=== PATIENT | female | born 1990 | race Hispanic/Latino ===

== ENCOUNTER 2016-12-31 17:15 | Observation (INO) | payer OTHER ==
--- NOTE | 2016-12-31 18:13 | ED PDOC ---
HPI: Chest Pain Time Seen by Provider: 12/31/16 17:40 Chief Complaint (Nursing): Chest Pain Chief Complaint (Provider): Right Sided Chest Pain/Right Arm Pain History Per: Patient History/Exam Limitations: no limitations Onset/Duration Of Symptoms: Hrs (since this morning) Current Symptoms Are (Timing): Still Present Additional Complaint(s): 17:240 Carolyn Braden is a 26 year old female with a history of ADHD and a surgical history of tonsillectomy that presents to the ED with a chief complaint of right sided chest pain described as "pressure" and associated right arm pain that she began experiencing this morning. Patient reports associated numbness and tingling on the radial aspect of her right arm, as well as a radiation of her pain to her neck and occipital skull. She denies any difficultly breathing, syncope, headache, dizziness, or weakness in her arms or legs. Patient states that she has never experienced this type of pain in the past, not has she ever experienced any numbness or tingling in her arm before. She reports that she "did a lot of cocaine over the weekend," as well as consumed large amounts of alcohol. PMD: No Provider Past Medical History Reviewed: Historical Data, Nursing Documentation, Vital Signs Vital Signs: Last Vital Signs Temp 97.9 F 12/31/16 22:30 Pulse 81 12/31/16 22:30 Resp 16 12/31/16 22:30 BP 125/80 12/31/16 22:30 Pulse Ox 99 01/01/17 06:48 - Medical History Other PMH: ADHD - Surgical History Surgical History: Tonsillectomy - Family History Family History: States: Unknown Family Hx - Social History Alcohol: Other (consumed alcohol over the weekend) Drugs: Cocaine - Home Medications Home Medications: Ambulatory Orders Medication Instructions Recorded Amphetamine Salt Combination 30 mg PO BID 12/31/16 [Adderall] - Allergies Allergies/Adverse Reactions: Allergies Allergy/AdvReac Type Severity Reaction Status Date / Time Penicillins Allergy RASH Verified 12/31/16 17:29 ELVIRA Risk Score for UA/NSTEMI - ELVIRA Risk Score Age > 64: NO 3 or more CAD Risk Factors: NO Known CAD (Stenosis greater than 50%): NO Aspirin use in past 7 days: NO Severe Angina: NO EKG ST changes greater than 0.5mm: NO Positive Cardiac Marker: NO ELVIRA Score: 0 Risk %: 5% Review of Systems Cardiovascular: Positive for: Chest Pain (right sided ) Respiratory: Negative for: Other (no difficulty breathing) Musculoskeletal: Positive for: Neck Pain (radiation of chest pain), Arm Pain ( right arm pain), Other (radition of pain to occipital skull) Neurological: Positive for: Numbness (both numbness and tingling on the radial aspect of the right arm). Negative for: Weakness (no weakness in arms or legs) , Headache, Dizziness Physical Exam - Reviewed Nursing Documentation Reviewed: Yes Vital Signs Reviewed: Yes - Physical Exam Appears: Positive for: Non-toxic, No Acute Distress (appears comfortable) Head Exam: Positive for: ATRAUMATIC, NORMOCEPHALIC Skin: Positive for: Normal Color, Warm, Dry Eye Exam: Positive for: Normal appearance, EOMI, PERRL Neck: Positive for: Normal Cardiovascular/Chest: Positive for: Regular Rate, Rhythm. Negative for: Murmur Respiratory: Positive for: Normal Breath Sounds. Negative for: Respiratory Distress Gastrointestinal/Abdominal: Positive for: Soft. Negative for: Tenderness Neurologic/Psych: Positive for: Alert, Oriented - Laboratory Results Result Diagrams: 12/31/16 18:18 12/31/16 18:18 - ECG ECG: Positive for: Interpreted By Me, Viewed By Me ECG Rhythm: Positive for: Normal QRS, Normal ST Segment, Sinus Rhythm. Negative for: ST/T Changes Rate: 86 O2 Sat by Pulse Oximetry: 99 (RA) Pulse Ox Interpretation: Normal - Radiology X-Ray: Interpreted by Me, Viewed By Me X-Ray Interpretation: No Acute Disease Medical Decision Making Medical Decision Makin:55 Initial Impression: Cocaine Induced Chest Pain vs. Neuropathy vs. Coronary Syndrome (least likely) vs. Cervical Radiculopathy (most likely) Initial Plan: * CBC * BMP * Troponin * Chest X-Ray * Flexeril 10 mg PO * Toradol 30 mg IM * Reevaluation Scribe Attestation: Documented by Osiris Claire, acting as a scribe for Mariann Bustamante MD. Provider Scribe Attestation: All medical record entries made by the Scribe were at my direction and personally dictated by me. I have reviewed the chart and agree that the record accurately reflects my personal performance of the history, physical exam, medical decision making, and the department course for this patient. I have also personally directed, reviewed, and agree with the discharge instructions and disposition. Disposition - Clinical Impression Clinical Impression: Chest pain on exertion, Left against medical advice - Patient ED Disposition Is Patient to be Admitted: Transfer of Care Counseled Patient/Family Regarding: Studies Performed - Disposition Disposition: Transfer of Care Disposition Time: 19:00 Condition: FAIR Patient Signed Over To: Henry Napier Handoff Comments: pending CT chest
[2016-12-31 18:35] LABS: BASO # 0.1 K/uL (0.0-0.2); BASO % 1.2 % (0.0-2.0); EOS # 0.1 K/uL (0.0-0.7); EOS % 1.6 % (0.0-4.0); HEMATOCRIT 49.1 % (34.0-47.0); LYMPH % 25.2 % (20.0-40.0); MEAN CELL VOLUME 100.1 fl (81.0-99.0); MEAN PLATELET VOLUME 8.4 fl (7.2-11.7); MONO # 0.8 K/uL (0.0-0.8); MONO % 9.5 % (0.0-10.0); NEUT % 62.5 % (50.0-75.0); NRBC % 0.1 % (0.0-0.0)
[2016-12-31 19:00] LABS: BLOOD UREA NITROGEN 12 mg/dl (7-17); CALCIUM 9.6 mg/dL (8.4-10.2); CARBON DIOXIDE 25 mmol/L (22-30); CHLORIDE 100 mmol/L (98-107); GFR AFRICAN-AMERICAN > 60; GLUCOSE,RANDOM 91 mg/dL (65-105); POTASSIUM 3.9 MMOL/L (3.6-5.0); SODIUM 136 mmol/l (132-148)
[2016-12-31] MEDS ORDERED: Iodixanol 320 MG/ML 100 ML BOTTLE IV ONE (19:18)
[2016-12-31] MEDS ORDERED: Sodium Chloride 0.9% 50 ML IV ONE (19:18)
[2016-12-31 19:27] VITALS: RESP 16
--- NOTE | 2016-12-31 20:08 | ED PDOC ---
- Laboratory Results Result Diagrams: 12/31/16 18:18 12/31/16 18:18 - ECG O2 Sat by Pulse Oximetry: 99 Medical Decision Making Medical Decision Makin:00 Patient signed over to me by Dr. Mariann Bustamante MD pending ED workup. 20:45 Patient reporting a significant amount of pain, will be given [address] Chest FINDINGS: Pulmonary arteries: Unremarkable. No pulmonary embolism. Aorta: No acute findings. No thoracic aortic aneurysm. Lungs: Tiny calcified granulomas No mass. No consolidation. Pleural space: Unremarkable. No significant effusion. No pneumothorax. Heart: Unremarkable. No cardiomegaly. No significant pericardial effusion. No evidence of RV dysfunction. Bones/joints: No acute fracture. No dislocation. Soft tissues: Left thyroid hypodense lesion measuring 13-14 mm Lymph nodes: Unremarkable. No enlarged lymph nodes. IMPRESSION: No aortic dissection or pulmonary embolism. Incidental left thyroid lesion which may be further characterized with non- urgent sonography CT Abdomen FINDINGS: Lower thorax: No acute findings. Aorta: No acute findings. No abdominal aortic aneurysm. No dissection. Celiac trunk and mesenteric arteries: No acute findings. No occlusion or significant stenosis. Renal arteries: No acute findings. No occlusion or significant stenosis. Liver: Hepatomegaly and diffuse fatty infiltration No mass. Gallbladder and bile ducts: Unremarkable. No calcified stones. No ductal dilation. Pancreas: Unremarkable. No ductal dilation. No mass. Spleen: Unremarkable. No splenomegaly. Adrenals: Unremarkable. No mass. Kidneys and ureters: Unremarkable. No hydronephrosis. No solid mass. Stomach and bowel: Unremarkable. No obstruction. No mucosal thickening. Intraperitoneal space: Unremarkable. No significant fluid collection. No free air. Bones/joints: No acute fracture. No dislocation. Soft tissues: Unremarkable. No mass. Lymph nodes: Unremarkable. No enlarged lymph nodes. IMPRESSION: No acute findings in the arteries of the abdomen 21:[address] scan reading, including thyroid lesion. Patient continues to experience pain, discussed with Dr. Manuel, patient will be admitted secondary to pain. Disposition Counseled Patient/Family Regarding: Studies Performed, Diagnosis, Need For Followup - Clinical Impression Clinical Impression: Chest pain on exertion, Left against medical advice - POA Present On Arrival: None - Disposition Disposition: AGAINST MEDICAL ADVICE Condition: FAIR ED OBSERVATION Date of observation admission: 12/31/16 Time of observation admission: 21:47 - Progress Note Progress Note: 21:[address] Manuel, patient admitted secondary to unrelenting pain. 22:32 The patient is choosing to leave against medical advice. I have personally explained to the patient that choosing to do so may result in permanent bodily harm or . I have discussed at great length that without further evaluation and monitoring there may be unforeseen circumstances and/or deterioration causing permanent bodily harm or as a result of their choice. The patient is alert, oriented, and shows the mental capacity to make clear decisions regarding the patients health care at this time. The patient continues to wish to leave against medical advice. In light of the patients decision to leave against medical advice, follow-up has been arranged and the patient is aware of the importance to following up as instructed. The patient has been advised that they should return to the emergency room immediately if they change their mind at any time, or if their condition begins to change or worsen in any way.
[2016-12-31 22:31] VITALS: BP 125/80; TEMP 97.9
[2017-01-01 06:48] VITALS: O2SAT 99
--- NOTE | 2017-01-01 07:13 | CARD ---
APPROVED REPORT EKG Measurement Heart [id number] <Conclusion> Normal sinus rhythm Normal ECG
--- NOTE | 2017-01-01 10:48 | RAD ---
HISTORY: chest pain COMPARISON: None available TECHNIQUE: Chest PA and lateral FINDINGS: Tubing is noted on lateral view which appears external to the patient. LUNGS: No focal consolidation. Mild scattered probable calcified granulomas. Please note that chest x-ray has limited sensitivity for the detection of pulmonary masses. PLEURA: No significant pleural effusion identified. No definite pneumothorax . CARDIOVASCULAR: The cardiomediastinal silhouette appears within normal limits of size. OSSEOUS STRUCTURES: Mild degenerative changes of the spine. VISUALIZED UPPER ABDOMEN: Unremarkable. OTHER FINDINGS: None. IMPRESSION: No focal consolidation, significant pleural effusion, or definite pneumothorax identified.
[2017-01-01 10:51] VITALS: PULSE 86
--- NOTE | 2017-01-01 11:22 | CT ---
CT: Dissection study Indication: Chest pain and arm pain Comparison: Chest x-ray performed 12/31/16 Technique: Contrast dose: 99 mL Visipaque [id number] Total exam DLP: 1517.80 Axial computed tomographic images utilizing dissection protocol without and with IV contrast. Sagittal and coronal reformatted images were generated and reviewed. Findings: Visualized portions of the inferior thyroid gland appear heterogeneous. Hypodense left lower pole hypodense nodule measuring approximately 14 mm. The mediastinal and hilar vascular structures appear within normal limits. The heart appears within normal limits of size. No large central or segmental pulmonary embolus evident. No focal consolidation. No pleural effusion. No pneumothorax. Scattered bilateral calcified granulomas. No suspicious pulmonary nodules measuring greater than 5 mm. There is normal course and contour of the abdominal aorta and common iliac arteries. The celiac artery origin is widely patent. The superior mesenteric artery origin is widely patent. The inferior mesenteric artery origin is patent. Bilateral renal arteries appear widely patent. Hepatomegaly. Diffuse hypoattenuation of the liver compatible with hepatic steatosis. Suspected region of focal fatty sparing adjacent to the gallbladder fossa. The pancreas, spleen, adrenal glands, and gallbladder appear unremarkable. The kidneys enhance symmetrically without evidence of hydronephrosis or obstructing renal calculi. No enlarged bulky lymphadenopathy is identified. Visualized bowel loops appear within normal limits of caliber without evidence of obstruction. The appendix appears normal. No inflammatory changes are seen in the right lower quadrant to suggest acute appendicitis. No definite free air. No acute osseous abnormality is identified. Impression: Incidental left lower pole thyroid hypodense lesion. Recommend further evaluation with outpatient ultrasound. No aortic dissection or pulmonary embolism identified. Evidence of prior granulomatous infection. Hepatic steatosis with suspected focal fatty sparing near the gallbladder fossa. Hepatomegaly. Preliminary impression was provided by virtual radiologic.
== END 2016-12-31 22:32 | disposition left against medical advice (07) ==
LOC: H.ER 17:15 → H.ERHOLD 21:47
PROVIDERS: ADMIT Internal Medicine; ATTEND Internal Medicine
DX: R07.9 Chest pain, unspecified (principal); F90.9 Attention-deficit hyperactivity disorder, unspecified type